=== PATIENT | female | born 1980 | race Caucasian/White ===

== ENCOUNTER 2019-05-10 23:55 | Emergency (ER) | payer MEDICARE, MEDICAID ==
[~2019-05-10] VITALS: Ht 165.1 cm; Wt 72.6 kg
[2019-05-11] MEDS ORDERED: CLARITIN10 M3 PO (00:03)
[2019-05-11] MEDS ORDERED: DESYREL150 MG PO (00:03)
[2019-05-11 00:25] LABS: HEMATOCRIT 37.3 % (37.0-47.0); HEMOGLOBIN 12.6 gm/dL (12.0-15.0); MCH 28.4 pg (26.0-34.0); MCHC 33.8 g/dL (28.0-37.0); MCV 83.9 fL (80.0-100.0); MPV 7.5 fl. (7.2-11.1); RBC 4.44 mil/uL (4.20-5.00); RDW-CV 14.1 % (10.5-14.5); WBC 14.7 thou/uL (4.0-11.0)
[2019-05-11 00:32] LABS: CALCIUM 8.9 mg/dL (8.5-10.1); CREATININE 0.9 mg/dL (0.6-1.3); POTASSIUM 3.7 mmol/L (3.5-5.1)
[2019-05-11 00:37] LABS: ALBUMIN 3.5 g/dL (3.4-5.0); TOTAL BILIRUBIN 0.3 mg/dL (<0.1-1.0); TOTAL PROTEIN 7.5 g/dL (6.4-8.2)
[2019-05-11 00:51] LABS: ACETAMINOPHEN < 2 ug/mL (10-30); ALCOHOL < 10 mg/dL (<10); SALICYLATE < 2.8 mg/dL (2.8-20.0)
[2019-05-11 02:52] LABS: URINE BILIRUBIN NEGATIVE (Negative); URINE BLOOD NEGATIVE (Negative); URINE CLARITY CLEAR; URINE COLOR YELLOW; URINE GLUCOSE-RANDOM NEGATIVE (Negative); URINE KETONES NEGATIVE (Negative); URINE LEUKOCYTES NEGATIVE (Negative); URINE NITRITE NEGATIVE (Negative); URINE PROTEIN NEGATIVE (Negative); URINE SPECIFIC GRAVITY <= 1.005 (1.005-1.030); URINE UROBILINOGEN 0.2 E.U./dl (0.2-1.0)
[2019-05-11 03:01] LABS: AMP/METHAMP Negative (Negative); BARBITURATES Negative (Negative); BENZODIAZEPINES Negative (Negative); COCAINE Negative (Negative); METHADONE Negative (Negative); OPIATES Negative (Negative); PCP Negative (Negative); THC Negative (Negative)
[2019-05-11] MEDS ORDERED: AMITRIPTYLINE H75 M1 PO (06:53)
[2019-05-11 07:20] VITALS: BP 104/59
--- NOTE | 2019-05-11 16:32 | EKG ---
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
== END 2019-05-11 07:20 | disposition home or self-care (01) ==
LOC: M.ERS 23:55
PROVIDERS: Personal Emergency Response Attendant
DX: T43.211A Poisoning by selective serotonin and norepinephrine reuptake inhibitors, accidental (unintentional), initial encounter (principal); G47.00 Insomnia, unspecified; R42 Dizziness and giddiness; F17.210 Nicotine dependence, cigarettes, uncomplicated; Y92.89 Other specified places as the place of occurrence of the external cause

== ENCOUNTER 2020-06-30 11:34 | Emergency (ER) | payer MEDICARE, MEDICAID ==
[~2020-06-30] VITALS: Ht 165.1 cm; Wt 62.1 kg
[~2020-06-30 11:34] MED LIST: AMITRIPTYLINE H75 M1 PO; CLARITIN10 M3 PO; DESYREL150 MG PO
[2020-06-30] MEDS ORDERED: BRINTELLIX10 MG PO (11:50)
[2020-06-30 12:18] LABS: URINE BILIRUBIN NEGATIVE (Negative); URINE BLOOD NEGATIVE (Negative); URINE CLARITY SL CLOUDY; URINE COLOR YELLOW; URINE GLUCOSE-RANDOM NEGATIVE (Negative); URINE KETONES NEGATIVE (Negative); URINE LEUKOCYTES-REFLEX TRACE (Negative); URINE NITRITE-REFLEX NEGATIVE (Negative); URINE PROTEIN 1+ (Negative); URINE SPECIFIC GRAVITY >= 1.030 (1.005-1.030); URINE UROBILINOGEN 0.2 E.U./dl (0.2-1.0)
[2020-06-30 12:29] LABS: SQUAMOUS >10 Many /LPF (0-3)
[2020-06-30 12:30] LABS: BACTERIA-REFLEX >30 Many /HPF (None Seen); CASTS None Seen /LPF (None Seen); CRYSTALS None Seen /LPF (None Seen); MUCUS >6 Heavy strn/LPF (None Seen); URINE RBC 0-2 Rare /HPF (0-2); URINE WBC-REFLEX 6-15 Few /HPF (0-5)
[2020-06-30] MEDS ORDERED: CEPHALEXIN500 MG PO (12:48)
[2020-06-30] MEDS ORDERED: DIFLUCAN150 M1 PO (12:48)
[2020-06-30 13:14] VITALS: BP 126/73
== END 2020-06-30 13:14 | disposition home or self-care (01) ==
LOC: M.ERS 11:34
PROVIDERS: Nurse Practitioner Family
DX: N39.0 Urinary tract infection, site not specified (principal); B37.3 Candidiasis of vulva and vagina

== ENCOUNTER 2020-08-24 09:57 | Emergency (ER) | payer MEDICARE, MEDICAID ==
[~2020-08-24] VITALS: Ht 165.1 cm; Wt 63.5 kg
[~2020-08-24 09:57] MED LIST changes: +BRINTELLIX10 MG PO; +CEPHALEXIN500 MG PO; +DIFLUCAN150 M1 PO
[2020-08-24 10:18] LABS: URINE BILIRUBIN NEGATIVE (Negative); URINE BLOOD NEGATIVE (Negative); URINE CLARITY CLEAR; URINE COLOR YELLOW; URINE GLUCOSE-RANDOM NEGATIVE (Negative); URINE KETONES TRACE (Negative); URINE LEUKOCYTES-REFLEX NEGATIVE (Negative); URINE NITRITE-REFLEX NEGATIVE (Negative); URINE PROTEIN 1+ (Negative); URINE SPECIFIC GRAVITY >= 1.030 (1.005-1.030); URINE UROBILINOGEN 0.2 E.U./dl (0.2-1.0)
[2020-08-24] MEDS ORDERED: TRAMADOL 50 MG50 MG PO (11:49)
[2020-08-24] MEDS ORDERED: NABUMETONE 750750 M1 PO (11:49)
[2020-08-24] MEDS ORDERED: FLAGYL500 M1 PO (11:49)
[2020-08-24 12:13] VITALS: BP 115/64
== END 2020-08-24 12:13 | disposition home or self-care (01) ==
LOC: M.ERS 09:57
PROVIDERS: Nurse Practitioner Family
DX: N76.0 Acute vaginitis (principal); B96.89 Other specified bacterial agents as the cause of diseases classified elsewhere; G89.29 Other chronic pain; M54.5 Low back pain; M77.52 Other enthesopathy of left foot and ankle; M77.8 Other enthesopathies, not elsewhere classified

== ENCOUNTER 2020-12-31 13:29 | Emergency (ER) | payer MEDICARE, MEDICAID ==
[~2020-12-31] VITALS: Ht 165.1 cm; Wt 62.6 kg
[~2020-12-31 13:29] MED LIST changes: +FLAGYL500 M1 PO; +NABUMETONE 750750 M1 PO; +TRAMADOL 50 MG50 MG PO
[2020-12-31] MEDS ORDERED: TRAZODONE HCL100 MG PO (14:09)
[2020-12-31] MEDS ORDERED: BRINTELLIX10 MG PO (14:09)
[2020-12-31 14:33] LABS: URINE BILIRUBIN NEGATIVE (Negative); URINE BLOOD TRACE (Negative); URINE CLARITY CLEAR; URINE COLOR YELLOW; URINE GLUCOSE-RANDOM NEGATIVE (Negative); URINE LEUKOCYTES-REFLEX 1+ (Negative); URINE NITRITE-REFLEX NEGATIVE (Negative); URINE PROTEIN 1+ (Negative); URINE SPECIFIC GRAVITY 1.025 (1.005-1.030); URINE UROBILINOGEN 0.2 E.U./dl (0.2-1.0)
[2020-12-31 14:37] LABS: URINE KETONES 3+ (Negative)
[2020-12-31 14:39] LABS: AMP/METHAMP Negative (Negative); BARBITURATES Negative (Negative); BENZODIAZEPINES Negative (Negative); COCAINE Negative (Negative); METHADONE Negative (Negative); OPIATES Negative (Negative); PCP Negative (Negative); THC Negative (Negative)
[2020-12-31 14:40] LABS: ACETEST (KETONE CONFIRMATORY) Large (Negative)
[2020-12-31 14:41] LABS: SQUAMOUS >10 Many /LPF (0-3)
[2020-12-31 14:42] LABS: BACTERIA-REFLEX 1-9 Few /HPF (None Seen); CASTS None Seen /LPF (None Seen); CRYSTALS None Seen /LPF (None Seen); MUCUS 0-3 Light strn/LPF (None Seen); URINE RBC 0-2 Rare /HPF (0-2); URINE WBC-REFLEX 6-15 Few /HPF (0-5)
[2020-12-31 14:59] LABS: ABSOLUTE BASOPHILS 0.1 thou/uL (0.0-0.2); ABSOLUTE EOSINOPHILS 0.1 thou/uL (0.0-0.7); ABSOLUTE LYMPHOCYTES 2.2 thou/uL (0.8-5.3); ABSOLUTE MONOCYTES 0.4 thou/uL (0.0-1.2); ABSOLUTE NEUTROPHILS 6.4 thou/uL (1.6-8.1); BASOPHILS 0.8 %; EOSINOPHILS 1.3 %; HEMATOCRIT 42.3 % (37.0-47.0); HEMOGLOBIN 14.6 gm/dL (12.0-15.0); MCH 29.3 pg (26.0-34.0); MCHC 34.6 g/dL (28.0-37.0); MCV 84.8 fL (80.0-100.0); MONOCYTES 4.6 %; MPV 7.7 fl. (7.2-11.1); NUCLEATED RBCS 0 /100WBC; PLATELET COUNT* 282 thou/uL (150-400); POLYS 69.3 %; RBC 4.99 mil/uL (4.20-5.00); RDW-CV 13.2 % (10.5-14.5); WBC 9.3 thou/uL (4.0-11.0)
[2020-12-31 15:09] LABS: CALCIUM 9.2 mg/dL (8.5-10.1); CREATININE 0.9 mg/dL (0.6-1.3); POTASSIUM 4.3 mmol/L (3.5-5.1)
[2020-12-31 15:14] LABS: ALBUMIN 3.9 g/dL (3.4-5.0); TOTAL BILIRUBIN 0.8 mg/dL (<0.1-1.0); TOTAL PROTEIN 8.7 g/dL (6.4-8.2)
[2020-12-31 15:24] LABS: ALCOHOL < 10 mg/dL (<10); SALICYLATE < 2.8 mg/dL (2.8-20.0)
[2020-12-31 15:25] LABS: ACETAMINOPHEN < 2 ug/mL (10-30)
[2020-12-31] MEDS ORDERED: AUGMENTIN 875-1 EACH PO (16:23)
[2020-12-31 19:57] VITALS: BP 136/96
== END 2020-12-31 19:55 ==
LOC: M.ERS 13:29
PROVIDERS: Emergency Medicine Emergency Medical Services
DX: R45.851 Suicidal ideations (principal); Z20.822 Contact with and (suspected) exposure to COVID-19; H66.91 Otitis media, unspecified, right ear; F32.9 Major depressive disorder, single episode, unspecified; Z79.899 Other long term (current) drug therapy

== ENCOUNTER 2021-01-22 18:34 | Emergency (ER) | payer MEDICARE, MEDICAID ==
[~2021-01-22] VITALS: Ht 165.1 cm; Wt 63.5 kg
[~2021-01-22 18:34] MED LIST changes: +AUGMENTIN 875-1 EACH PO; +TRAZODONE HCL100 MG PO
[2021-01-22 19:19] LABS: INFLUENZA A ANTIGEN Negative (Negative); INFLUENZA B ANTIGEN Negative (Negative)
[2021-01-22 20:21] VITALS: BP 108/74
--- NOTE | 2021-01-23 10:00 | EKG ---
[place] [address] ELECTROCARDIOGRAM REPORT Name: RHONDA BENITEZ Room: 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1980 Requested By: Radha Mandujano Order Number: [id number] MD: Vlad Pérez Measurements Intervals [place] Rate: 90 P: 68 [place]: 151 QRS: 24 QRSD: 70 T: -59 QT: 450 QTc: 551 Interpretive Statements Sinus rhythm Left atrial enlargement Nonspecific T abnormalities, anterior leads Prolonged QT interval Artifact in lead(s) II,III,aVR,aVL,aVF Compared to ECG 05/11/2019 00:01:03 T-wave abnormality now present Prolonged QT interval now present Sinus arrhythmia no longer present Electronically Signed On 01-23-2021 9:59:59 ENGINE SETTER by Vlad Pérez [email or web address] <ELECTRONICALLY SIGNED> By: Vlad Pérez MD, FACC 01/23/21 [id number] Vlad Pérez MD, [facility] /EPI
== END 2021-01-22 20:22 | disposition home or self-care (01) ==
LOC: M.ERS 18:34
PROVIDERS: Physician Assistant
DX: U07.1 COVID-19 (principal); Z79.899 Other long term (current) drug therapy